=== PATIENT | male | born 1990 | race Hispanic/Latino ===

== ENCOUNTER 2021-10-04 11:34 | Emergency (ER) | payer OTHER ==
[~2021-10-04] VITALS: Ht 172.7 cm; Wt 149.7 kg
[2021-10-04] MEDS ORDERED: IBUP-2071 PO (12:19)
[2021-10-04 12:28] VITALS: BP 159/122
[2021-10-04] MEDS ORDERED: CLONIDINE HCL 0.1 MG TABLET PO ONE (12:30)
[2021-10-04] MEDS ORDERED: IBUPROFEN 800 MG TAB PO ONE (12:30)
== END 2021-10-04 12:57 | disposition home or self-care (01) ==
LOC: EDH 11:34
DX: S63.501A Unspecified sprain of right wrist, initial encounter (principal); R03.0 Elevated blood-pressure reading, without diagnosis of hypertension; E66.01 Morbid (severe) obesity due to excess calories; Z68.43 Body mass index [BMI] 50.0-59.9, adult; W19.XXXA Unspecified fall, initial encounter; Y93.01 Activity, walking, marching and hiking; Y92.009 Unspecified place in unspecified non-institutional (private) residence as the place of occurrence of the external cause; Y99.8 Other external cause status
CPT/HCPCS: 29125; 73090; 73130